=== PATIENT | female | born 1980 ===

== ENCOUNTER 2018-04-14 08:04 | Day surgery (SDC) | payer OTHER ==
[2018-04-14] MEDS ORDERED: Lactated Ringer's 500 ML IV ONE (08:36)
[2018-04-14] MEDS ORDERED: Propofol 10 mg/ml Inj (20 ML) ONE (10:29)
[2018-04-14 11:25] VITALS: BP 99/51; PULSE 72; RESP 17; TEMP 97.9; O2SAT 98
== END 2018-04-14 11:27 | disposition home or self-care (01) ==
LOC: H.ENDO 08:04
PROVIDERS: ATTEND Internal Medicine Gastroenterology
DX: K62.5 Hemorrhage of anus and rectum (principal); K64.8 Other hemorrhoids; K31.89 Other diseases of stomach and duodenum; R10.13 Epigastric pain
CPT/HCPCS: 43239; 45378; 88305; J2001; J2704; J7120